=== PATIENT | female | born 1935 | race Caucasian/White ===

== ENCOUNTER 2017-04-01 12:56 | Emergency (ER) | payer MEDICARE, OTHER ==
[~2017-04-01] VITALS: Ht 172.7 cm; Wt 74.8 kg
[~2017-04-01 12:56] MED LIST: ASPIRIN EC325 MG PO; ASPIRIN EC81 MG PO; CALCIUM + VITA1 EACH PO; HEALTHY HEART1 EACH PO; LISINOPRIL20 MG PO; MIRALAX17 GM PO; NORCO 5-325 TA1 EACH PO; NORCO 7.5-3251 EACH PO; OXYCODONE HCL5 MG PO; PERCOCET 5-3251 EACH PO; VITAMIN B-12100 MCG PO; VITAMIN B-6250 MG PO; VITAMIN B12-FO1 EACH PO; VITAMIN D1000 UNI1 PO; VITAMIN D3400 UNIT PO
[2017-04-01] MEDS ORDERED: NORCO 5-325 TA1 EACH PO (14:46)
== END 2017-04-01 14:51 | disposition home or self-care (01) ==
LOC: ED 12:56
DX: S20.211A Contusion of right front wall of thorax, initial encounter (principal); I10 Essential (primary) hypertension; Z96.612 Presence of left artificial shoulder joint; Z96.653 Presence of artificial knee joint, bilateral; Z90.710 Acquired absence of both cervix and uterus; Z79.899 Other long term (current) drug therapy; Z79.01 Long term (current) use of anticoagulants; W17.89XA Other fall from one level to another, initial encounter
CPT/HCPCS: 71101; 73502; 96372; 99283; J1885

== ENCOUNTER 2017-06-13 09:42 | Emergency (ER) | payer MEDICARE, OTHER ==
[~2017-06-13] VITALS: Ht 172.7 cm; Wt 75.8 kg
== END 2017-06-13 13:36 | disposition home or self-care (01) ==
LOC: ED 09:42
DX: M47.816 Spondylosis without myelopathy or radiculopathy, lumbar region (principal); M51.36 Other intervertebral disc degeneration, lumbar region; Z90.710 Acquired absence of both cervix and uterus; Z90.49 Acquired absence of other specified parts of digestive tract; Z96.612 Presence of left artificial shoulder joint; Z96.653 Presence of artificial knee joint, bilateral; Z79.899 Other long term (current) drug therapy
CPT/HCPCS: 72110; 81001; 99283

== ENCOUNTER 2017-06-18 17:16 | Emergency (ER) | payer MEDICARE, OTHER ==
[~2017-06-18] VITALS: Ht 172.7 cm; Wt 75.8 kg
== END 2017-06-18 23:36 | disposition short-term general hospital (02) ==
LOC: ED 17:16
DX: R29.898 Other symptoms and signs involving the musculoskeletal system (principal); Z90.49 Acquired absence of other specified parts of digestive tract; Z90.710 Acquired absence of both cervix and uterus; Z79.899 Other long term (current) drug therapy
CPT/HCPCS: 72131; 80053; 81001; 85025; 96374; 99285; J1100